=== PATIENT | female | born 1990 | race Caucasian/White ===

== ENCOUNTER 2020-11-12 21:55 | Emergency (ER) | payer SELFPAY ==
[2020-11-12 21:59] VITALS: PULSE 78; RESP 17; TEMP 36.8; O2SAT 98
[2020-11-12 23:00] LABS: Basophils # 0.1 10^3/uL (0.0-0.1); Basophils % 0.5 %; Eosinophils # 0.1 10^3/uL (0.0-0.8); Eosinophils % 0.4 %; Hemoglobin 12.9 g/dL (11.5-15.3); Lymphocytes # 2.6 10^3/uL (0.8-4.8); Lymphocytes % 19.3 %; Mean Corpuscular HGB Conc 32.3 g/dL (30.0-36.0); Mean Corpuscular Volume 80.6 fL (81-99); Mean Platelet Volume 11.1 fL (7.4-10.4); Monocytes # 0.8 10^3/uL (0.2-0.9); Monocytes % 5.9 %; Neutrophils # 10.01 10^3/uL (1.8-7.7); Neutrophils % 73.6 %; Nucleated Red Blood Cells % 0 %; Platelet Count 268 10^3/cmm (130-400); Red Blood Count 4.96 10^6/uL (4.1-5.3); Red Cell Distribution Width 15.3 % (12.1-15.1); White Blood Count 13.6 10^3/uL (4.0-10.0)
[2020-11-12 23:25] LABS: Alanine Aminotransferase 14 U/L (0-33); Albumin Level 4.3 g/dL (3.5-5.2); Alkaline Phosphatase 94 IU/L (35-105); Anion Gap 13.6 (5-19); Aspartate Amino Transferase 24 U/L (0-32); Blood Urea Nitrogen 11 mg/dL (6-20); Calcium 9.9 mg/dL (8.5-10.5); Carbon Dioxide 24 mmol/L (22-29); Chloride 104 mmol/L (98-107); Glomerular Filtration Rate 187.4 mL/min (90-130); Glucose 110 mg/dL (65-115); Lipase 15 U/L (13-60); Osmolality Calculated 286 mOsm/kg (285-295); Potassium 3.6 mmol/L (3.5-5.1); Sodium 138 mmol/L (136-145); Total Bilirubin 0.2 mg/dL (0.15-1.2); Total Protein 7.3 g/dL (6.6-8.7)
[2020-11-12 23:27] LABS: HCG Qualitative Urine. Negative (Negative)
[2020-11-12 23:31] LABS: Specific Gravity, Urine 1.025 (1.005-1.030); Urine Appearance Clear (CLEAR); Urine Color Dark Yellow (Yellow)
[2020-11-12 23:32] LABS: Add Urine Microscopic? YES; Bacteria Urine 1+ /hpf; Bilirubin Urine Neg (Negative); Blood Urine 3+ (Negative); Glucose Urine UA Norm (Normal); Ketones Urine Negative (Negative); Leukocyte Esterase Urine Negative (Negative); Mucus Urine 2+ /hpf; Nitrate Urine Negative (Negative); Protein Urine Neg (Negative); RBC Urine 15-25 /hpf (0-2); Urobilinogen Urine 1 mg/dL (Negative)
[2020-11-12 23:33] LABS: Add Urine Culture? No
== END 2020-11-13 02:01 | disposition left against medical advice (07) ==
LOC: ER 22:08
PROVIDERS: Emergency Provider Emergency Medicine
DX: Z53.21 Procedure and treatment not carried out due to patient leaving prior to being seen by health care provider (principal)
CPT/HCPCS: 80053; 81001; 81025; 83690; 85025; 99281; 99282

== ENCOUNTER → 2021-04-10 14:46 | Outpatient (BNVA) | payer MEDICAID, SELFPAY | PROVIDERS: Visit Provider Nurse Practitioner Women's Health | DX: F19.20 Other psychoactive substance dependence, uncomplicated (principal); Z34.80 Encounter for supervision of other normal pregnancy, unspecified trimester; O09.899 Supervision of other high risk pregnancies, unspecified trimester; F19.21 Other psychoactive substance dependence, in remission; O99.331 Smoking (tobacco) complicating pregnancy, first trimester | CPT/HCPCS: 81000 ==

== ENCOUNTER → 2021-04-29 11:03 | Outpatient (BNVA) | payer MEDICAID, SELFPAY | PROVIDERS: Visit Provider Obstetrics & Gynecology | DX: O09.899 Supervision of other high risk pregnancies, unspecified trimester (principal); O99.331 Smoking (tobacco) complicating pregnancy, first trimester; F19.21 Other psychoactive substance dependence, in remission; O34.40 Maternal care for other abnormalities of cervix, unspecified trimester; Z98.890 Other specified postprocedural states | CPT/HCPCS: 80307; 81000; 85027; 86592; 86762; 86803; 86850; 86900; 87086; 87340; 87806 ==

== ENCOUNTER → 2021-05-14 09:40 | Outpatient (BNVA) | payer MEDICAID, SELFPAY | PROVIDERS: Visit Provider Obstetrics & Gynecology | DX: O09.899 Supervision of other high risk pregnancies, unspecified trimester (principal) | CPT/HCPCS: 81000; 87491; 87591 ==

== ENCOUNTER → 2021-06-13 13:03 | Outpatient (BNVA) | payer MEDICAID, SELFPAY | PROVIDERS: Visit Provider Obstetrics & Gynecology | DX: O09.899 Supervision of other high risk pregnancies, unspecified trimester (principal); F19.21 Other psychoactive substance dependence, in remission; O34.40 Maternal care for other abnormalities of cervix, unspecified trimester; Z98.890 Other specified postprocedural states; O99.331 Smoking (tobacco) complicating pregnancy, first trimester | CPT/HCPCS: 81000 ==

== ENCOUNTER → 2021-07-16 14:33 | Outpatient (BNVA) | payer MEDICAID, SELFPAY | PROVIDERS: Visit Provider Obstetrics & Gynecology | DX: O09.899 Supervision of other high risk pregnancies, unspecified trimester (principal); F19.21 Other psychoactive substance dependence, in remission; B37.3 Candidiasis of vulva and vagina | CPT/HCPCS: 80307; 81000; 87086 ==

== ENCOUNTER → 2021-08-04 12:54 | Outpatient (BNVA) | payer MEDICAID, SELFPAY | PROVIDERS: Visit Provider Obstetrics & Gynecology | DX: O09.899 Supervision of other high risk pregnancies, unspecified trimester (principal); F19.21 Other psychoactive substance dependence, in remission; O34.40 Maternal care for other abnormalities of cervix, unspecified trimester; O99.331 Smoking (tobacco) complicating pregnancy, first trimester; Z98.890 Other specified postprocedural states | CPT/HCPCS: 81000 ==

== ENCOUNTER → 2021-08-20 09:00 | Outpatient (BNVA) | payer MEDICAID, SELFPAY | PROVIDERS: Visit Provider Obstetrics & Gynecology | DX: Z34.90 Encounter for supervision of normal pregnancy, unspecified, unspecified trimester (principal); Z3A.00 Weeks of gestation of pregnancy not specified | CPT/HCPCS: 76817 ==

== ENCOUNTER → 2021-09-02 12:19 | Outpatient (BNVA) | payer MEDICAID, SELFPAY | PROVIDERS: Visit Provider Obstetrics & Gynecology | DX: O09.899 Supervision of other high risk pregnancies, unspecified trimester (principal); F19.21 Other psychoactive substance dependence, in remission; O34.40 Maternal care for other abnormalities of cervix, unspecified trimester; Z98.890 Other specified postprocedural states; O99.331 Smoking (tobacco) complicating pregnancy, first trimester | CPT/HCPCS: 80307; 81000; 82950; 85027 ==

== ENCOUNTER → 2021-09-05 08:44 | Outpatient (BNVA) | payer MEDICAID, SELFPAY | PROVIDERS: Visit Provider Obstetrics & Gynecology | DX: O09.899 Supervision of other high risk pregnancies, unspecified trimester (principal) | CPT/HCPCS: 82951; 82952 ==

== ENCOUNTER → 2021-09-17 10:29 | Outpatient (BNVA) | payer MEDICAID, SELFPAY | PROVIDERS: Visit Provider Obstetrics & Gynecology | DX: O09.899 Supervision of other high risk pregnancies, unspecified trimester (principal) | CPT/HCPCS: 81000 ==

== ENCOUNTER 2021-10-14 13:18 | Inpatient (IN) | payer MEDICAID, SELFPAY ==
[2021-10-14] VITALS (11 sets, daily range): BP systolic 90–213; BP diastolic 45–147; PULSE 80–102; RESP 16–17; TEMP 36.6–37.1; O2SAT 96–97
[2021-10-14 13:45] LABS: Basophils # 0.1 10^3/uL (0.0-0.1); Basophils % 0.3 %; Eosinophils % 0.2 %; Hematocrit 33.9 % (37.0-47.0); Hemoglobin 11.5 g/dL (11.5-15.3); Lymphocytes # 2.7 10^3/uL (0.8-4.8); Lymphocytes % 15.7 %; Mean Corpuscular HGB Conc 33.9 g/dL (30.0-36.0); Mean Corpuscular Hemoglobin 27.3 pg (28.0-34.0); Mean Corpuscular Volume 80.3 fl (81-99); Mean Platelet Volume 10.8 fL (7.4-10.4); Monocytes # 1.1 10^3/uL (0.2-0.9); Monocytes % 6.6 %; Neutrophils # 13.17 10^3/uL (1.8-7.7); Neutrophils % 76.6 %; Nucleated Red Blood Cells % 0 %; Platelet Count 257 10^3/cmm (130-400); Red Blood Count 4.22 10^6/uL (4.1-5.3); White Blood Count 17.2 10^3/uL (4.0-10.0)
--- NOTE | 2021-10-14 15:27 | P.PCNOB_ITS ---
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 Lim is a 31-year-old 5 P3013 at 34 weeks and 3 days who presented to labor and delivery with reports of contractions. She states that contractions started about 330 this morning handwork strong but irregular however she thought that they would go away and she was just monitoring her contractions. When they persisted and got stronger and more frequent she drove herself over to labor and delivery. She rates Labor and Delivery at 1 PM at which point she was noted to be in active labor at 7 cm 90% and -1 station- cephalic's. tracing was category 1 and she is rudy every 1 to 3 minutes and was very uncomfortable. She was examined 20 minutes later and was noted to be 9 cm with a bulging bag at which time I was called and reached in about 5 minutes. Orders have been placed to start antibiotics and steroids but none of this had been done by the time patient was fully dilated at 1:44 PM as she was getting admitted into the system. Decision was made to forego this as it would not make a difference to give these medications a couple of minutes before delivery. Artificial rupture of membranes was performed at 1:50 PM as patient was very uncomfortable with the urge to push. Investor Relations Manager Dr. Woods was present. Clear fluid was noted. Patient was placed in lithotomy position ready to deliver DELIVERY NOTE: She was set up in lithotomy position and was pushing effectively. She was noted to be +3 station and continued pushing well. The head delivered in DEVONTE position, no nuchal cord was present. The shoulders and rest of the body followed with her next push. The baby's mouth and nose were suctioned and baby was handed to the waiting mastic worker Dr. Woods. The placenta delivered spontaneously intact with membranes and was sent to pathology after cultures were obtained. The fundus was noted to be firm and well contracted. The vagina and cervix were inspected and no cervical or sulcal lacerations were noted. The perineum was noted to be intact Baby boy, Dave born at 1:53 PM on 10/14/2021 with 8/9, weighing 5 pounds, 2217 g, 18 inches long. Placenta was delivered spontaneously intact with membranes at 1:57 PM. Cotyledons were intact , centrally inserted umbilical cord with 3 vessels noted. Placental cultures were obtained and placenta was sent to pathology Estimated blood loss 200 mL. Complications-no maternal complications and mother was left to recover in a stable condition. Baby was grunting and was taken by mastic worker Dr. Woods to the nursery for evaluation. This documentation was created by [employer] certified legal investigator software (known for inherent certified legal investigator error). Every effort was made to assure accuracy of certified legal investigator. Any obvious errors or omissions should be clarified with the author of the document. History History History 5 Term 3 Miscarriages/Ectopic 1 1 Living Children 4 Other History: 5 para 3013 x 3 SAB x 1 1---> 2009, full-term vaginal delivery of a baby boy (Ajith) weighing 7 lbs. 3 oz. in [place]. Denies any or complications. 2-----> 2012, full-term vaginal delivery of a baby boy(Bin) weighing [address] Marcum at [facility]. No or complications. 3-----> 08/04/2016, incomplete in 1st trimester at 10 weeks gestation, d&c preformed by Dr. Slim Lyn. 4-----> 07/12/2017, male, (John), 6 lbs, 3 oz, vaginal delivery at 37 weeks [address] Roach at [facility] in [place], [place]. 5-----> October 14, 2021, male([place]), 5 pounds 0 ounces at 34 weeks and 3 days-active labor-presented at 7 cm and delivered in [address]. [address] Lyn at [facility]. Intact perineum. Baby was transferred to [facility] for respiratory support given gestational age. Coding Level of Care Code Acute Banquet Chef for Chg Fwkaryn
--- NOTE | 2021-10-14 15:30 | PM.OPHPUD ---
Labor & Delivery H&P Update Date of Procedure: October 14, 2021 Date H&P Performed: 09/17/21 H&P update information: I have reviewed H&P completed within last 30 days, I have examined patient prior to procedure, Changes to prior documentation as noted here and H&P is in [facility] EMR on date indicated Changes to previous documentation: Patient in active labor with cervix 7 cm 90% and -1 station Admission Diagnosis:
[2021-10-14 15:41] LABS: Amphetamines Screen Urine Negative (Negative); Barbiturates Screen Urine Negative (Negative); Benzodiazepines Screen Urine Negative (Negative); Cocaine Screen Urine Negative (Negative); Opiate Screen Urine Negative (Negative); PCP Screen Urine Negative (Negative); THC Screen Urine Negative (Negative)
[2021-10-14] MEDS: ibuprofen 800 mg tablet PO (22:31)
[2021-10-14] MEDS: docusate sodium 100 mg Capsule PO (22:32)
[2021-10-15 03:37] VITALS: BP 101/48; PULSE 83; RESP 14; O2SAT 98
[2021-10-15 03:40] LABS: Hematocrit 32.9 % (37.0-47.0); Hemoglobin 10.6 g/dL (11.5-15.3); Mean Corpuscular HGB Conc 32.2 g/dL (30.0-36.0); Mean Corpuscular Hemoglobin 26.7 pg (28.0-34.0); Mean Corpuscular Volume 82.9 fl (81-99); Mean Platelet Volume 10.6 fL (7.4-10.4); Platelet Count 237 10^3/cmm (130-400); Red Blood Count 3.97 10^6/uL (4.1-5.3); Red Cell Distribution Width 13.9 % (12.1-15.1); White Blood Count 12.9 10^3/uL (4.0-10.0)
--- NOTE | 2021-10-15 07:23 | P.DS_ITS ---
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 Lim is a 31-year-old 5 P3013 at 34 weeks and 3 days who presented to labor and delivery with reports of contractions. She states that contractions started about 330 this morning handwork strong but irregular however she thought that they would go away and she was just monitoring her contractions. When they persisted and got stronger and more frequent she drove herself over to labor and delivery. She rates Labor and Delivery at 1 PM at which point she was noted to be in active labor at 7 cm 90% and -1 station- cephalic's. tracing was category 1 and she is rudy every 1 to 3 minutes and was very uncomfortable. She was examined 20 minutes later and was noted to be 9 cm with a bulging bag at which time I was called and reached in about 5 minutes. Orders have been placed to start antibiotics and steroids but none of this had been done by the time patient was fully dilated at 1:44 PM as she was getting admitted into the system. Decision was made to forego this as it would not make a difference to give these medications a couple of minutes before delivery. Artificial rupture of membranes was performed at 1:50 PM as patient was very uncomfortable with the urge to push. Life Insurance Specialist Dr. Woods was present. Clear fluid was noted. Patient was placed in lithotomy position ready to deliver DELIVERY NOTE: She was set up in lithotomy position and was pushing effectively. She was noted to be +3 station and continued pushing well. The head delivered in DEVONTE position, no nuchal cord was present. The shoulders and rest of the body followed with her next push. The baby's mouth and nose were suctioned and baby was handed to the waiting personal insurance advisor Dr. Woods. The placenta delivered spontaneously intact with membranes and was sent to pathology after cultures were obtained. The fundus was noted to be firm and well contracted. The vagina and cervix were inspected and no cervical or sulcal lacerations were noted. The perineum was noted to be intact Baby boy, Dave born at 1:53 PM on 10/14/2021 with 8/9, weighing 5 pounds, 2217 g, 18 inches long. Placenta was delivered spontaneously intact with membranes at 1:57 PM. Cotyledons were intact , centrally inserted umbilical cord with 3 vessels noted. Placental cultures were obtained and placenta was sent to pathology Estimated blood loss 200 mL. Complications-no maternal complications and mother was left to recover in a stable condition. Baby was grunting and was taken by personal insurance advisor Dr. Woods to the nursery for evaluation. HOSPITAL COURSE: She underwent an uncomplicated vaginal delivery on October 14, 2021 at 34 weeks. She did well on day 0 and was ambulating well, tolerating regular diet, voiding freely, passing flatus. She was pumping without any difficulty. Her son had been transferred to [place] for prematurity and respiratory difficulty on day of life 0. Pain was well-controlled with by mouth pain medication. She denied nausea, vomiting, fever, chills, shortness of breath, leg pain. She had moderate vaginal bleeding. On day # 1 she continued to do well with stable vital signs and stable hemoglobin at 10.6. She was discharged home on day 1 in a stable condition after about 18 hours as she desired early discharge to be with her baby in [place]. Warning signs for endometritis, mastitis, DVT/PE were reviewed with her. Post delivery activity restrictions were also reviewed with her at all her questions were answered to her satisfaction. She plans on using the Nexplanon for contraception and plan is to place this between 4 to 5 weeks and these appointments are provided to patient prior to discharge EXAM AT DISCHARGE: Gen.: No acute distress Heart: S1-S2 heard, regular rate and rhythm Lungs: Clear to auscultation bilaterally Abdomen: Soft, fundus firm below umbilicus Legs: No calf tenderness, trace bilateral pitting pedal edema. CONDITION AT DISCHARGE: Stable This documentation was created by [employer] floors buffer software (known for inherent floors buffer error). Every effort was made to assure accuracy of floors buffer. Any obvious errors or omissions should be clarified with the author of the document. Reason for Visit Reason for Visit: Abdominal pain Information Peripartum Data: Infant Delivery Method: Vaginal History History History 5 Term 3 Miscarriages/Ectopic 1 1 Living Children 4 Other History: 5 para 3013 x 3 SAB x 1 1---> 2009, full-term vaginal delivery of a baby boy (Ajith) weighing 7 lbs. 3 oz. in [place]. Denies any or complications. 2-----> 2012, full-term vaginal delivery of a baby boy(Bin) weighing [address] Marcum at [facility]. No or complications. 3-----> 08/04/2016, incomplete in 1st trimester at 10 weeks gestation, d&c preformed by Dr. Slim Lyn. 4-----> 07/12/2017, male, (John), 6 lbs, 3 oz, vaginal delivery at 37 weeks [address] Roach at [facility] in [place], [place]. 5-----> October 14, 2021, male([place]), 5 pounds 0 ounces at 34 weeks and 3 days-active labor-presented at 7 cm and delivered in [address]. [address] Lyn at [facility]. Intact perineum. Baby was transferred to [facility] for respiratory support given gestational age. Discharge Data Data Completed and Pending: Pending at discharge Category Date Time Status Chlamydia Trachom atis KELSI Routine Lab 10/14/21 14:30 Received Neisseria Gonorrh oeae EKLSI Routine Lab 10/14/21 14:30 Received Tissue Culture an d Gram Stain Stat Lab 10/14/21 14:06 Received Tissue Culture an d Gram Stain Stat Lab 10/14/21 14:06 Received Urine Culture Sta t Lab 10/14/21 14:30 Received Pathology: Surgic al [PTH] Routine Pth 10/14/21 14:28 Ordered Labs from last 24 hours 10/15/21 10/14/21 10/14/21 03:33 14:52 13:20 WBC 12.9 H 17.2 H RBC 3.97 L 4.22 Hgb 10.6 L 11.5 Hct 32.9 L 33.9 L MCV 82.9 80.3 L MCH 26.7 L 27.3 L MCHC 32.2 D 33.9 RDW 13.9 14.0 Plt Count 237 257 MPV 10.6 H 10.8 H Neut % (Auto) 76.6 Lymph % (Auto) 15.7 Elliott % (Auto) 6.6 Eos % (Auto) 0.2 Baso % (Auto) 0.3 Neut # (Auto) 13.17 H Lymph # (Auto) 2.7 Elliott # (Auto) 1.1 H Eos # (Auto) 0.0 Baso # (Auto) 0.1 Nucleated RBC % (a uto) 0 Nucleated RBCs # 0.0 Urine Opiates Scre en Negative Ur Barbiturates Sc reen Negative Ur Phencyclidine S crn Negative Ur Amphetamines Sc reen Negative U Benzodiazepines Scrn Negative Urine Cocaine Scre en Negative U Marijuana (THC) Screen Negative Vitals: Last Vital Signs Temp 97.9 F 10/14/21 17:30 Pulse 83 10/15/21 03:37 Resp 14 10/15/21 03:37 BP 101/48 10/15/21 03:37 Pulse Ox 98 10/15/21 03:37 Discharge Plan Discharge Patient Disposition: Home Condition: Stable Prescriptions: New docusate sodium 100 mg Capsule 100 mg PO BID PRN (Reason: constipation) Qty: 30 RF: 0 ibuprofen 800 mg tablet 800 mg PO Q8H Qty: 30 RF: 0 Continued Gummy 400 mcg-35 mg -25 mg-5 mg tablet,chewable 2 tab PO DAILY RF: 0 buprenorphine-naloxone 8-2 mg tablet, sublingual See Rx Instructions sublingual BID RF: 0 (DME) breast pump [Pump In Style Advanced] Device See Rx Instructions .MEDSUPPLY Qty: 1 RF: 0 Discontinued ferrous sulfate 325 mg (65 mg iron) tablet,delayed release (DR/EC) 325 mg PO BID Qty: 90 RF: 2 Discharge Orders: Discharge Order (Routine); Ordered 10/15/21 Ordered By: Slim Riddle Referrals: Slim Riddle MD [Physician] - Discharge Diet: Regular Discharge Activity: Limit activity as instructed Patient Instructions: Opioid Safety Activity Restrictions/Additional Instructions: Pelvic rest for 6 weeks, no heavy lifting for 6 weeks, 5. Nexplanon insertion visit in 6-week visit with Dr. Lyn Discharge Attestations CUT OUT STITCHER Time Spent in Discharge Care*: greater than 30 min Coding Level of Care Code Acute Presentation Team Member for Ciera Molina
[2021-10-15 09:20] VITALS: BP 109/65; PULSE 92; RESP 18; TEMP 36.4; O2SAT 95
== END 2021-10-15 09:35 | disposition home or self-care (01) | DRG 806 ==
LOC: OPOB 13:19 → OBGYN 13:19
PROVIDERS: Admitting Provider Obstetrics & Gynecology; Visit Provider Obstetrics & Gynecology
DX: O60.14X0 Preterm labor third trimester with preterm delivery third trimester, not applicable or unspecified (principal); O99.324 Drug use complicating childbirth; Z37.0 Single live birth; F11.21 Opioid dependence, in remission; Z3A.34 34 weeks gestation of pregnancy; O99.02 Anemia complicating childbirth; D64.9 Anemia, unspecified; O99.334 Smoking (tobacco) complicating childbirth; F17.210 Nicotine dependence, cigarettes, uncomplicated
CPT/HCPCS: 36415; 59025; 59409; 80306; 85025; 85027; 87070; 87077; 87086; 87176; 87186; 87205; 87491; 87591; 88307; 99211

== ENCOUNTER 2021-11-24 05:11 | Emergency (ER) | payer MEDICAID, SELFPAY ==
[2021-11-24 05:12] VITALS: BP 109/75; PULSE 78; RESP 18; TEMP 36.4; O2SAT 98; BMI 48.6
--- NOTE | 2021-11-24 05:18 | ED_ITS ---
Documented by User: Caren Caballero MD 11/24/21 05:20 HPI - Nausea/Vomiting/Diarrhea General: Chief complaint: Nausea/Vomiting/Diarrhea Stated complaint: N/V/D Time Seen by Provider: 11/24/21 05:14 Source: patient Mode of arrival: ambulatory Limitations: no limitations History of Present Illness: HPI Narrative: 31-year-old female is here by EMS with nausea vomiting diarrhea states it started all of a sudden at 8 PM and she felt severely ill. She states she ate some burritos earlier and thought she may have food poisoning states she has had multiple episodes of vomiting and diarrhea. She was having abdominal cramping as well denies any fevers. Denies any sick contacts. Patient was given Phenergan in route states that her symptoms have improved greatly she no longer has any pain and has not had any more vomiting she had recently given last month vaginally no discharge or any problems with her . She has not had a menstruation since her . 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 Quit in June 2020 and is on medication for withdrawal monitored by [facility]-Dr. Hernandez No pertinent past medical history Denies diabetes, asthma, hypertension, seizures, DVT/PE PCP: None Surgical History H/O dilation and curettage (~2015) 2016--performed by Dr. Lyn for incomplete miscarriage at 10 weeks at [facility] [place] H/O LEEP (08/21/15) 08/2015----LEEP performed by Dr. Day for abnormal cells on the cervix. LEEP performed in office-squamocolumnar junction was identified and removed. She had a lot of bleeding which was unable to be controlled in the office and so was taken to outpatient surgery center were bleeding was stopped with repeated cautery and sutures. Family History Mother Diabetes Thyroid disease Heart disease Grandmother Heart disease maternal Sister Diabetes Father Colon cancer Diagnosed in his 60s Denies family history of Ovarian cancer Hyperlipidemia Breast cancer Hypertension Uterine cancer Stroke Physical Exam Const: COMMON NORMALS: no acute distress, patient oriented x3 and healthy appearing HENMT: COMMON NORMALS: normocephalic and atraumatic HEAD & SCALP: normocephalic and atraumatic Eye: COMMON NORMALS: Equal, round and reactive pupils present and EOMs intact bilaterally PUPIL: Yes Equal, round and reactive pupils present Neck/C-Spine: COMMON NORMALS: full ROM and supple Chest: COMMONS NORMALS: normal inspection of the chest and normal palpation of entire chest wall Resp: COMMON NORMALS: normal respiratory effort, No retractions, No use of accessory muscles and clear to auscultation bilaterally AUSCULTATION: clear to auscultation bilaterally Cardio: COMMON NORMALS: regular rate, regular rhythm and No murmurs present (Cardio) RATE: regular rate RHYTHM: regular rhythm GI: COMMON NORMALS: Normal to inspection, nondistended, normoactive bowel sounds present, Soft to palpation, non-tender and no masses PALPATION: Yes Soft to palpation Extremity: COMMON NORMALS: normal to inspection and full ROM Neuro: COMMON NORMALS: patient oriented x3, moves all extremities and no focal motor deficits Psych: COMMON NORMALS: mental status grossly normal, Normal thought process present and cooperative THOUGHT PROCESS: Normal thought process present Skin: COMMON NORMALS: no rashes or lesions noted and no wounds GENERAL SKIN EXAM: no rashes or lesions noted Course Vital Signs: Vital signs: Vital Signs Temperature 97.5 F L 11/24/21 05:12 Pulse Rate 78 11/24/21 05:12 Respiratory Rate 18 11/24/21 05:12 Blood Pressure 109/75 11/24/21 05:12 Pulse Oximetry 98 11/24/21 05:12 MDM - Nausea/Vomiting/Diarrhea Lab Data: Labs: Lab Results 11/24/21 11/24/21 11/24/21 05:35 05:35 05:40 WBC Cancelled Corrected WBC Cancelled RBC Cancelled Hgb Cancelled Hct Cancelled MCV Cancelled MCH Cancelled MCHC Cancelled RDW Cancelled Plt Count Cancelled MPV Cancelled Gran % Cancelled Neut % (Auto) Cancelled Lymph % (Auto) Cancelled [place] % (Auto) Cancelled Eos % (Auto) Cancelled Baso % (Auto) Cancelled Neut # (Auto) Cancelled Lymph # (Auto) Cancelled [place] # (Auto) Cancelled Eos # (Auto) Cancelled Baso # (Auto) Cancelled Absolute Gran (aut o) Cancelled Nucleated RBC % (a uto) Cancelled Nucleated RBCs # Cancelled Sodium Cancelled Potassium Cancelled Chloride Cancelled Carbon Dioxide Cancelled Anion Gap Cancelled BUN Cancelled Creatinine Cancelled GFR Calculation Cancelled Glucose Cancelled Calculated Osmolal ity Cancelled Calcium Cancelled Total Bilirubin Cancelled AST Cancelled ALT Cancelled Alkaline Phosphata se Cancelled Total Protein Cancelled Albumin Cancelled Globulin Cancelled Lipase Cancelled Urine Color Yellow (Yellow) Urine Appearance Sl hazy (CLEAR) Urine pH 5 (5-7) Ur Specific Gravit y 1.025 (1.005-1.030) Urine Protein 1+ H (Negative) Urine Glucose (UA) Norm (Normal) Urine Ketones 1+ H (Negative) Urine Blood 2+ H (Negative) Urine Nitrate Negative (Negative) Urine Bilirubin 1+ H (Negative) Urine Urobilinogen 4 mg/dL H mg/dL (Negative) Ur Leukocyte Darcy ase Trace H (Negative) Urine RBC 5-10 /hpf H /hpf (0-2) Urine WBC 0-4 /hpf H /hpf (0-5) Ur Squamous Epith Cells 25-40 /hpf H /hpf (0-5) Amorphous Sediment Not Reportable Urine Bacteria 3+ /hpf H /hpf (NONE) Urine Mucus 4+ /hpf /hpf 11/24/21 11/24/21 06:13 06:13 WBC 16.6 10^3/uL H 10 ^3/uL (4.0-10.0) Corrected WBC RBC 5.61 10^6/uL H 10 ^6/uL (4.1-5.3) Hgb 14.6 g/dL g/dL (11.5-15.3) Hct 46.4 % % (37.0-47.0) MCV 82.7 fl fl (81-99) MCH 26.0 pg L pg (28.0-34.0) MCHC 31.5 g/dL g/dL (30.0-36.0) RDW 14.0 % % (12.1-15.1) Plt Count 183 10^3/cmm 10^3 /cmm (130-400) MPV 11.2 fL H fL (7.4-10.4) Gran % Neut % (Auto) 86.6 % % Lymph % (Auto) 6.7 % % [place] % (Auto) 5.3 % % Eos % (Auto) 0.7 % % Baso % (Auto) 0.3 % % Neut # (Auto) 14.37 10^3/uL H 1 0^3/uL (1.8-7.7) Lymph # (Auto) 1.1 10^3/uL 10^3/ uL (0.8-4.8) [place] # (Auto) 0.9 10^3/uL 10^3/ uL (0.2-0.9) Eos # (Auto) 0.1 10^3/uL 10^3/ uL (0.0-0.8) Baso # (Auto) 0.1 10^3/uL 10^3/ uL (0.0-0.1) Absolute Gran (aut o) Nucleated RBC % (a uto) 0 % % Nucleated RBCs # 0.0 /100WBC /100W BC Sodium 142 mmol/L mmol/L (136-145) Potassium 4.1 mmol/L mmol/L (3.5-5.1) Chloride 105 mmol/L mmol/L (98-107) Carbon Dioxide 24 mmol/L mmol/L (22-29) Anion Gap 17.1 (5-19) BUN 11 mg/dL mg/dL (6-20) Creatinine 0.6 mg/dL mg/dL (0.5-0.9) GFR Calculation 116.6 mL/min mL/m in (90-130) Glucose 98 mg/dL mg/dL (65-115) Calculated Osmolal ity 293 mOsm/kg mOsm/ kg (285-295) Calcium 9.1 mg/dL mg/dL (8.5-10.5) Total Bilirubin 0.3 mg/dL mg/dL (0.15-1.2) AST 18 U/L U/L (0-32) ALT 26 U/L U/L (0-33) Alkaline Phosphata se 87 IU/L IU/L (35-105) Total Protein 6.9 g/dL g/dL (6.6-8.7) Albumin 4.5 g/dL g/dL (3.5-5.2) Globulin 2.4 g/dL g/dL (1.3-4.6) Lipase 21 U/L U/L (13-60) Urine Color Urine Appearance Urine pH Ur Specific Gravit y Urine Protein Urine Glucose (UA) Urine Ketones Urine Blood Urine Nitrate Urine Bilirubin Urine Urobilinogen Ur Leukocyte Darcy ase Urine RBC Urine WBC Ur Squamous Epith Cells Amorphous Sediment Urine Bacteria Urine Mucus Discharge Plan Discharge Patient Disposition: Home Clinical Impression: Gastroenteritis Condition: Stable Prescriptions: New promethazine 25 mg tablet 25 mg PO Q6H PRN (Reason: nausea and vomiting) Qty: 20 RF: 0 No Action Gummy 400 mcg-35 mg -25 mg-5 mg tablet,chewable 2 tab PO DAILY RF: 0 buprenorphine-naloxone 8-2 mg tablet, sublingual See Rx Instructions sublingual BID RF: 0 (DME) breast pump [Pump In Style Advanced] Device See Rx Instructions .MEDSUPPLY Qty: 1 RF: 0 ibuprofen 800 mg tablet 800 mg PO Q8H Qty: 30 RF: 0 docusate sodium 100 mg Capsule 100 mg PO BID PRN (Reason: constipation) Qty: 30 RF: 0 Discharge Orders: Discharge ED (Routine); Ordered 11/24/21 Ordered By: Jalen Diana Discharge Diet: Clear Liquid Discharge Activity: Resume usual activity Patient Instructions: Clear Liquid Diet (ED), Opioid Safety Activity Restrictions/Additional Instructions: Clear liquid diet for 24 to 48 hours and advance as tolerated. For any worsening or change symptoms return to the emergency room or check in with your primary care doctor. Sign Out Sign Out Data: Patient Sign Out occurred on 11/24/21 at 06:18. Patient's care was discussed, and care was transferred from to Jalen Diana DO. 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 Quit in June 2020 and is on medication for withdrawal monitored by [facility]-Dr. Hernandez No pertinent past medical history Denies diabetes, asthma, hypertension, seizures, DVT/PE PCP: None Surgical History H/O dilation and curettage (~2015) 2015--performed by Dr. Lyn for incomplete miscarriage at 10 weeks at [facility] [place] H/O LEEP (08/21/15) 08/2015----LEEP performed by Dr. Day for abnormal cells on the cervix. LEEP performed in office-squamocolumnar junction was identified and removed. She had a lot of bleeding which was unable to be controlled in the office and so was taken to outpatient surgery center were bleeding was stopped with repeated cautery and sutures. Family History Mother Diabetes Thyroid disease Heart disease Grandmother Heart disease maternal Sister Diabetes Father Colon cancer Diagnosed in his 60s Denies family history of Ovarian cancer Hyperlipidemia Breast cancer Hypertension Uterine cancer Stroke Course Vital Signs: Vital signs: Vital Signs Temperature 97.5 F L 11/24/21 05:12 Pulse Rate 78 11/24/21 05:12 Respiratory Rate 18 11/24/21 05:12 Blood Pressure 109/75 11/24/21 05:12 Pulse Oximetry 98 11/24/21 05:12 MDM - Nausea/Vomiting/Diarrhea MDM Narrative: Medical decision making narrative: Care assumed at change of shift from Dr. Caballero. Patient is feeling much better. She is approximately 3 weeks . She has not previously had any symptoms like this. T bili and liver enzymes are normal repeat exam of her abdomen negative Dc sign no sign of occult cholelithiasis. Clear liquid diet for 48 hours and advance as tolerated promethazine to use as needed recheck with primary care or in the emergency room if has any worsening of symptoms. Lab Data: Labs: Lab Results 11/24/21 11/24/21 11/24/21 05:35 05:35 05:40 WBC Cancelled Corrected WBC Cancelled RBC Cancelled Hgb Cancelled Hct Cancelled MCV Cancelled MCH Cancelled MCHC Cancelled RDW Cancelled Plt Count Cancelled MPV Cancelled Gran % Cancelled Neut % (Auto) Cancelled Lymph % (Auto) Cancelled [place] % (Auto) Cancelled Eos % (Auto) Cancelled Baso % (Auto) Cancelled Neut # (Auto) Cancelled Lymph # (Auto) Cancelled [place] # (Auto) Cancelled Eos # (Auto) Cancelled Baso # (Auto) Cancelled Absolute Gran (aut o) Cancelled Nucleated RBC % (a uto) Cancelled Nucleated RBCs # Cancelled Sodium Cancelled Potassium Cancelled Chloride Cancelled Carbon Dioxide Cancelled Anion Gap Cancelled BUN Cancelled Creatinine Cancelled GFR Calculation Cancelled Glucose Cancelled Calculated Osmolal ity Cancelled Calcium Cancelled Total Bilirubin Cancelled AST Cancelled ALT Cancelled Alkaline Phosphata se Cancelled Total Protein Cancelled Albumin Cancelled Globulin Cancelled Lipase Cancelled Urine Color Yellow (Yellow) Urine Appearance Sl hazy (CLEAR) Urine pH 5 (5-7) Ur Specific Gravit y 1.025 (1.005-1.030) Urine Protein 1+ H (Negative) Urine Glucose (UA) Norm (Normal) Urine Ketones 1+ H (Negative) Urine Blood 2+ H (Negative) Urine Nitrate Negative (Negative) Urine Bilirubin 1+ H (Negative) Urine Urobilinogen 4 mg/dL H mg/dL (Negative) Ur Leukocyte Darcy ase Trace H (Negative) Urine RBC 5-10 /hpf H /hpf (0-2) Urine WBC 0-4 /hpf H /hpf (0-5) Ur Squamous Epith Cells 25-40 /hpf H /hpf (0-5) Amorphous Sediment Not Reportable Urine Bacteria 3+ /hpf H /hpf (NONE) Urine Mucus 4+ /hpf /hpf 11/24/21 11/24/21 06:13 06:13 WBC 16.6 10^3/uL H 10 ^3/uL (4.0-10.0) Corrected WBC RBC 5.61 10^6/uL H 10 ^6/uL (4.1-5.3) Hgb 14.6 g/dL g/dL (11.5-15.3) Hct 46.4 % % (37.0-47.0) MCV 82.7 fl fl (81-99) MCH 26.0 pg L pg (28.0-34.0) MCHC 31.5 g/dL g/dL (30.0-36.0) RDW 14.0 % % (12.1-15.1) Plt Count 183 10^3/cmm 10^3 /cmm (130-400) MPV 11.2 fL H fL (7.4-10.4) Gran % Neut % (Auto) 86.6 % % Lymph % (Auto) 6.7 % % [place] % (Auto) 5.3 % % Eos % (Auto) 0.7 % % Baso % (Auto) 0.3 % % Neut # (Auto) 14.37 10^3/uL H 1 0^3/uL (1.8-7.7) Lymph # (Auto) 1.1 10^3/uL 10^3/ uL (0.8-4.8) [place] # (Auto) 0.9 10^3/uL 10^3/ uL (0.2-0.9) Eos # (Auto) 0.1 10^3/uL 10^3/ uL (0.0-0.8) Baso # (Auto) 0.1 10^3/uL 10^3/ uL (0.0-0.1) Absolute Gran (aut o) Nucleated RBC % (a uto) 0 % % Nucleated RBCs # 0.0 /100WBC /100W BC Sodium 142 mmol/L mmol/L (136-145) Potassium 4.1 mmol/L mmol/L (3.5-5.1) Chloride 105 mmol/L mmol/L (98-107) Carbon Dioxide 24 mmol/L mmol/L (22-29) Anion Gap 17.1 (5-19) BUN 11 mg/dL mg/dL (6-20) Creatinine 0.6 mg/dL mg/dL (0.5-0.9) GFR Calculation 116.6 mL/min mL/m in (90-130) Glucose 98 mg/dL mg/dL (65-115) Calculated Osmolal ity 293 mOsm/kg mOsm/ kg (285-295) Calcium 9.1 mg/dL mg/dL (8.5-10.5) Total Bilirubin 0.3 mg/dL mg/dL (0.15-1.2) AST 18 U/L U/L (0-32) ALT 26 U/L U/L (0-33) Alkaline Phosphata se 87 IU/L IU/L (35-105) Total Protein 6.9 g/dL g/dL (6.6-8.7) Albumin 4.5 g/dL g/dL (3.5-5.2) Globulin 2.4 g/dL g/dL (1.3-4.6) Lipase 21 U/L U/L (13-60) Urine Color Urine Appearance Urine pH Ur Specific Gravit y Urine Protein Urine Glucose (UA) Urine Ketones Urine Blood Urine Nitrate Urine Bilirubin Urine Urobilinogen Ur Leukocyte Darcy ase Urine RBC Urine WBC Ur Squamous Epith Cells Amorphous Sediment Urine Bacteria Urine Mucus Discharge Plan Discharge Patient Disposition: Home Clinical Impression: Gastroenteritis Condition: Stable Prescriptions: New promethazine 25 mg tablet 25 mg PO Q6H PRN (Reason: nausea and vomiting) Qty: 20 RF: 0 No Action Gummy 400 mcg-35 mg -25 mg-5 mg tablet,chewable 2 tab PO DAILY RF: 0 buprenorphine-naloxone 8-2 mg tablet, sublingual See Rx Instructions sublingual BID RF: 0 (DME) breast pump [Pump In Style Advanced] Device See Rx Instructions .MEDSUPPLY Qty: 1 RF: 0 ibuprofen 800 mg tablet 800 mg PO Q8H Qty: 30 RF: 0 docusate sodium 100 mg Capsule 100 mg PO BID PRN (Reason: constipation) Qty: 30 RF: 0 Discharge Orders: Discharge ED (Routine); Ordered 11/24/21 Ordered By: Jalen Diana Discharge Diet: Clear Liquid Discharge Activity: Resume usual activity Patient Instructions: Clear Liquid Diet (ED), Opioid Safety Activity Restrictions/Additional Instructions: Clear liquid diet for 24 to 48 hours and advance as tolerated. For any worsening or change symptoms return to the emergency room or check in with your primary care doctor. Sign Out Sign Out Data: Patient Sign Out occurred on 11/24/21 at 06:18. Patient's care was discussed, and care was transferred from to Jalen Diana DO. Coding Level of Care Code ED Enrollment Management Vice President for Chg Fwd Exam Comprehensive
[2021-11-24] MEDS: sodium chloride 0.9% 1,000 ML 999 ML IV (05:30)
[2021-11-24 06:22] LABS: Basophils # 0.1 10^3/uL (0.0-0.1); Basophils % 0.3 %; Eosinophils # 0.1 10^3/uL (0.0-0.8); Eosinophils % 0.7 %; Hematocrit 46.4 % (37.0-47.0); Hemoglobin 14.6 g/dL (11.5-15.3); Lymphocytes # 1.1 10^3/uL (0.8-4.8); Lymphocytes % 6.7 %; Mean Corpuscular HGB Conc 31.5 g/dL (30.0-36.0); Mean Corpuscular Volume 82.7 fl (81-99); Mean Platelet Volume 11.2 fL (7.4-10.4); Monocytes # 0.9 10^3/uL (0.2-0.9); Monocytes % 5.3 %; Neutrophils # 14.37 10^3/uL (1.8-7.7); Neutrophils % 86.6 %; Nucleated Red Blood Cells % 0 %; Platelet Count 183 10^3/cmm (130-400); Red Blood Count 5.61 10^6/uL (4.1-5.3); White Blood Count 16.6 10^3/uL (4.0-10.0)
[2021-11-24 06:23] LABS: Add Urine Microscopic? YES; Bilirubin Urine 1+ (Negative); Blood Urine 2+ (Negative); Glucose Urine UA Norm (Normal); Ketones Urine 1+ (Negative); Leukocyte Esterase Urine Trace (Negative); Nitrate Urine Negative (Negative); Protein Urine 1+ (Negative); Specific Gravity, Urine 1.025 (1.005-1.030); Urine Appearance SL Hazy (CLEAR); Urine Color Yellow (Yellow); Urobilinogen Urine 4 mg/dL (Negative); pH Urine 5 (5-7)
[2021-11-24 06:25] LABS: Add Urine Culture? No; Bacteria Urine 3+ /hpf; Mucus Urine 4+ /hpf; Squamous Epithelial Cell Urine 25-40 /hpf (0-5); WBC Urine 0-4 /hpf (0-5)
[2021-11-24 06:38] LABS: Alanine Aminotransferase 26 U/L (0-33); Albumin Level 4.5 g/dL (3.5-5.2); Alkaline Phosphatase 87 IU/L (35-105); Anion Gap 17.1 (5-19); Aspartate Amino Transferase 18 U/L (0-32); Blood Urea Nitrogen 11 mg/dL (6-20); Calcium 9.1 mg/dL (8.5-10.5); Carbon Dioxide 24 mmol/L (22-29); Chloride 105 mmol/L (98-107); Globulin 2.4 g/dL (1.3-4.6); Glomerular Filtration Rate 116.6 mL/min (90-130); Glucose 98 mg/dL (65-115); Lipase 21 U/L (13-60); Osmolality Calculated 293 mOsm/kg (285-295); Potassium 4.1 mmol/L (3.5-5.1); Sodium 142 mmol/L (136-145); Total Bilirubin 0.3 mg/dL (0.15-1.2); Total Protein 6.9 g/dL (6.6-8.7)
[2021-11-24 07:16] VITALS: BP 114/64; PULSE 86; RESP 18; O2SAT 98
== END 2021-11-24 07:15 | disposition home or self-care (01) ==
PROVIDERS: Emergency Medicine; Emergency Provider Family Medicine
DX: K52.9 Noninfective gastroenteritis and colitis, unspecified (principal)
CPT/HCPCS: 36415; 80053; 81001; 83690; 85025; 96360; 99283; J7030

== ENCOUNTER → 2021-11-25 15:50 | Outpatient (BNVA) | payer MEDICAID, SELFPAY | PROVIDERS: Visit Provider Obstetrics & Gynecology | DX: Z30.9 Encounter for contraceptive management, unspecified (principal) | CPT/HCPCS: 81025 ==

== ENCOUNTER → 2021-12-02 11:48 | Outpatient (BNVA) | payer MEDICAID, SELFPAY | PROVIDERS: Visit Provider Obstetrics & Gynecology | DX: Z12.4 Encounter for screening for malignant neoplasm of cervix (principal) | CPT/HCPCS: 87624 ==

== ENCOUNTER 2022-12-29 01:52 | Inpatient (IN) | payer MEDICAID, SELFPAY ==
[2022-12-29] VITALS (22 sets, daily range): BP systolic 79–131; BP diastolic 33–75; PULSE 64–88; RESP 16–20; TEMP 36.1–37.6; O2SAT 93–100; BMI 29.2
--- NOTE | 2022-12-29 02:07 | USR_ITS ---
PROCEDURE INFORMATION: Exam: US Abdomen, Limited; Right Upper Quadrant Exam date and time: 12/29/2022 2:39 AM Age: 32 years old Clinical indication: Abdominal pain; Epigastric; Patient HX: Normal tbili = 0.3, normal ast = 13, normal alt = 11, normal alkphos = 96, negative hcg, lipase wnl; Additional info: Ruq pain TECHNIQUE: Imaging protocol: Real time ultrasound of the abdomen with image documentation. Limited exam focused on the right upper quadrant. COMPARISON: No relevant prior studies available. FINDINGS: Liver: Unremarkable liver, no focal abnormality. Gallbladder: Numerous small shadowing gallstones visible within the gallbladder. There is also some biliary sludge in the gallbladder. Mild to moderate gallbladder wall thickening, measuring up to 4.6 mm. The gallbladder appears somewhat distended, length of 11.5 cm, transverse diameter of up to 4.7 cm. Technologist states patient was tender over the gallbladder region during scanning. The overall appearance could represent acute cholecystitis, please correlate clinically. Biliary ducts: Mild moderate biliary tree dilation, with common duct measuring up to about 8 mm. No visible common duct stone by ultrasound. Pancreas: Visible pancreas unremarkable. Right kidney: Images of the right kidney show no hydronephrosis. Intraperitoneal space: There is a small amount of peritoneal fluid visible in the right upper quadrant/Martin's pouch area. US/US gall bladder [id number] IMPRESSION: 1. Cholelithiasis, see additional details above. 2. The overall appearance could represent acute cholecystitis, please correlate clinically. 3. Mild to moderate biliary tree dilation, with common duct measuring up to about 8 mm. 4. Small amount of peritoneal fluid visible in the right upper quadrant/Martin's pouch area. 5. Other findings discussed above.
--- NOTE | 2022-12-29 02:08 | W.ED.ABDPA2 ---
HPI - Abdominal Pain General: Chief Complaint: Abdominal Pain Stated Complaint: abdomen pain Time Seen by Provider: 12/29/22 01:53 Source: patient Mode of arrival: ambulatory Limitations: no limitations History of Present Illness: 32-year-old female states she been having epigastric along with right upper quadrant pain today. She states pain is sharp in nature rates it a 8 out of 10 denies any worsening improving factors she has had nausea denies any vomiting she had no abdominal surgery in the past. Denies any fevers. Associated Symptoms: Denies chills, dysuria and fever(s) Review of Systems Const: Denies: fever(s), chills, body aches or change in appetite Eyes: Denies: blurry vision or eye discomfort ENMT: Denies: throat pain or dental pain Card: Denies: chest pain Resp: Denies: dyspnea GI: Reports: abdominal pain : Denies: dysuria Musc: Denies: neck pain or back pain Skin/Breast: Denies: rash Neuro: Denies: headache(s) Psych: Denies: depression Thomas/Lymph: Denies: easy bruising All/Imm: Denies: urticaria PFSH ED PFSH: Medical History 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 Quit in June 2020 and is on medication for withdrawal monitored by [facility]-Dr. Hernandez No pertinent past medical history Denies diabetes, asthma, hypertension, seizures, DVT/PE PCP: None Surgical History H/O dilation and curettage (~2015) 2015--performed by Dr. Lyn for incomplete miscarriage at 10 weeks at [facility] H/O LEEP (08/21/15) 08/2015----LEEP performed by Dr. Day for abnormal cells on the cervix. LEEP performed in office-squamocolumnar junction was identified and removed. She had a lot of bleeding which was unable to be controlled in the office and so was taken to outpatient surgery center were bleeding was stopped with repeated cautery and sutures. Family History Mother Diabetes Thyroid disease Heart disease Grandmother Heart disease maternal Sister Diabetes Father Colon cancer Diagnosed in his 60s Denies family history of Ovarian cancer Hyperlipidemia Breast cancer Hypertension Uterine cancer Stroke Physical Exam Const: COMMON NORMALS: no acute distress, patient oriented x3 and healthy appearing HENMT: COMMON NORMALS: normocephalic and atraumatic HEAD & SCALP: normocephalic and atraumatic Eye: COMMON NORMALS: Equal, round and reactive pupils present and EOMs intact bilaterally PUPIL: Yes Equal, round and reactive pupils present Neck/C-Spine: COMMON NORMALS: full ROM and supple Chest: COMMONS NORMALS: normal inspection of the chest and normal palpation of entire chest wall Resp: COMMON NORMALS: normal respiratory effort, No retractions, No use of accessory muscles and clear to auscultation bilaterally AUSCULTATION: clear to auscultation bilaterally Cardio: COMMON NORMALS: regular rate, regular rhythm and No murmurs present (Cardio) RATE: regular rate RHYTHM: regular rhythm GI: COMMON NORMALS: Normal to inspection, nondistended, normoactive bowel sounds present, Soft to palpation and no masses PALPATION: Yes Soft to palpation OTHER: epigastric and ruq tenderness Extremity: COMMON NORMALS: normal to inspection and full ROM Neuro: COMMON NORMALS: patient oriented x3, moves all extremities and no focal motor deficits Psych: COMMON NORMALS: mental status grossly normal, Normal thought process present and cooperative THOUGHT PROCESS: Normal thought process present Skin: COMMON NORMALS: no rashes or lesions noted and no wounds GENERAL SKIN EXAM: no rashes or lesions noted Course Vital Signs: Vital signs: Vital Signs Temperature 98.6 F 12/29/22 01:59 Pulse Rate 75 12/29/22 01:59 Respiratory Rate 18 12/29/22 01:59 Blood Pressure 131/75 12/29/22 01:59 Pulse Oximetry 96 12/29/22 01:59 Oxygen Delivery Me thod 12/29/22 01:59 MDM - Abdominal Pain Medical Decision Making Patient presents here with abdominal pain ultrasound shows cholecystitis she does have an elevated white count as well I spoke to surgeon on-call and will admit at this time. Lab Data 12/29/22 02:16 12/29/22 02:16 Labs/Radiology: Laboratory Results WBC 17.1 10^3/uL (4.0-10.0) H 12/29/22 02:16 RBC 5.35 10^6/uL (4.1-5.3) H 12/29/22 02:16 Hgb 14.1 g/dL (11.5-15.3) 12/29/22 02:16 Hct 43.0 % (37.0-47.0) 12/29/22 02:16 MCV 80.4 fl (81-99) L 12/29/22 02:16 MCH 26.4 pg (28.0-34.0) L 12/29/22 02:16 MCHC 32.8 g/dL (30.0-36.0) 12/29/22 02:16 RDW 14.0 % (12.1-15.1) 12/29/22 02:16 Plt Count 242 10^3/cmm (130-400) 12/29/22 02:16 MPV 10.8 fL (7.4-10.4) H 12/29/22 02:16 Neut % (Auto) 82.5 % 12/29/22 02:16 Lymph % (Auto) 11.4 % 12/29/22 02:16 [place] % (Auto) 5.4 % 12/29/22 02:16 Eos % (Auto) 0.1 % 12/29/22 02:16 Baso % (Auto) 0.2 % 12/29/22 02:16 Neut # (Auto) 14.12 10^3/uL (1.8-7.7) H 12/29/22 02:16 Lymph # (Auto) 2.0 10^3/uL (0.8-4.8) 12/29/22 02:16 [place] # (Auto) 0.9 10^3/uL (0.2-0.9) 12/29/22 02:16 Eos # (Auto) 0.0 10^3/uL (0.0-0.8) 12/29/22 02:16 Baso # (Auto) 0.0 10^3/uL (0.0-0.1) 12/29/22 02:16 Nucleated RBC % (auto) 0 % 12/29/22 02:16 Nucleated RBCs # 0.0 /100WBC 12/29/22 02:16 Sodium 134 mmol/L (136-145) L 12/29/22 02:16 Potassium 4.0 mmol/L (3.5-5.1) 12/29/22 02:16 Chloride 100 mmol/L (98-107) 12/29/22 02:16 Carbon Dioxide 20 mmol/L (22-29) L 12/29/22 02:16 Anion Gap 18.0 (5-19) 12/29/22 02:16 BUN 9 mg/dL (6-20) 12/29/22 02:16 Creatinine 0.5 mg/dL (0.5-0.9) 12/29/22 02:16 GFR Calculation 143.0 mL/min (90-130) H 12/29/22 02:16 Glucose 129 mg/dL (65-115) H 12/29/22 02:16 Calculated Osmolality 278 mOsm/kg (285-295) L 12/29/22 02:16 Calcium 10.3 mg/dL (8.5-10.5) 12/29/22 02:16 Total Bilirubin 0.3 mg/dL (0.15-1.2) 12/29/22 02:16 AST 13 U/L (0-32) 12/29/22 02:16 ALT 11 U/L (0-33) 12/29/22 02:16 Alkaline Phosphatase 96 U/L (35-105) 12/29/22 02:16 Total Protein 7.8 g/dL (6.6-8.7) 12/29/22 02:16 Albumin 4.5 g/dL (3.5-5.2) 12/29/22 02:16 Globulin 3.3 g/dL (1.3-4.6) 12/29/22 02:16 Lipase 11 U/L (13-60) L 12/29/22 02:16 HCG, Qual Negative (Negative) 12/29/22 02:16 Urine Color Yellow (Yellow) 12/29/22 02:16 Urine Appearance Clear (CLEAR) 12/29/22 02:16 Urine pH 8 (5-7) H 12/29/22 02:16 Ur Specific [place] 1.020 (1.005-1.030) 12/29/22 02:16 Urine Protein Neg (Negative) 12/29/22 02:16 Urine Glucose (UA) Norm (Normal) 12/29/22 02:16 Urine Ketones 1+ (Negative) H 12/29/22 02:16 Urine Blood Neg (Negative) 12/29/22 02:16 Urine Nitrate Negative (Negative) 12/29/22 02:16 Urine Bilirubin Neg (Negative) 12/29/22 02:16 Prot Sulfosalicylic Acd Negative (Negative) 12/29/22 02:16 Urine Urobilinogen Norm mg/dL (Negative) 12/29/22 02:16 Ur Leukocyte Esterase Negative (Negative) 12/29/22 02:16 Discharge Plan Discharge Patient Disposition: Admitted As Inpatient Clinical Impression: Acute cholecystitis Condition: Stable Prescriptions: No Action buprenorphine-naloxone 8-2 mg tablet, sublingual See Rx Instructions sublingual BID Rx Instructions: ; Nexplanon 68 mg implant 1 implant subdermal .every three years Qty: 1 0RF Coding Level of Care Code ED Drum Sander Offbearer for Ciera Molina
[2022-12-29] MEDS: lidocaine 2% viscous 15 ML, aluminum-mag hydrox-simethicon 30 ML, sucralfate oral liq 1 GM PO (02:21)
[2022-12-29] MEDS: sodium chloride 0.9% 1,000 ML 999 ML IV (02:22)
[2022-12-29 02:25] LABS: Basophils % 0.2 %; Eosinophils % 0.1 %; Hemoglobin 14.1 g/dL (11.5-15.3); Lymphocytes % 11.4 %; Mean Corpuscular HGB Conc 32.8 g/dL (30.0-36.0); Mean Corpuscular Hemoglobin 26.4 pg (28.0-34.0); Mean Corpuscular Volume 80.4 fl (81-99); Mean Platelet Volume 10.8 fL (7.4-10.4); Monocytes # 0.9 10^3/uL (0.2-0.9); Monocytes % 5.4 %; Neutrophils # 14.12 10^3/uL (1.8-7.7); Neutrophils % 82.5 %; Nucleated Red Blood Cells % 0 %; Platelet Count 242 10^3/cmm (130-400); Red Blood Count 5.35 10^6/uL (4.1-5.3); White Blood Count 17.1 10^3/uL (4.0-10.0)
[2022-12-29 02:26] LABS: Add Urine Microscopic? NO; Charge for UA Resulting for Rev
[2022-12-29 02:28] LABS: Bilirubin Urine Neg (Negative); Blood Urine Neg (Negative); Glucose Urine UA Norm (Normal); Ketones Urine 1+ (Negative); Leukocyte Esterase Urine Negative (Negative); Nitrate Urine Negative (Negative); Protein Urine Neg (Negative); Sulfosalicylic Acid Urine Negative (Negative); Urine Appearance Clear (CLEAR); Urine Color Yellow (Yellow); Urobilinogen Urine Norm (Negative); pH Urine 8 (5-7)
[2022-12-29 02:39] LABS: HCG, Serum Qual Negative (Negative)
[2022-12-29 02:42] LABS: Alanine Aminotransferase 11 U/L (0-33); Albumin Level 4.5 g/dL (3.5-5.2); Alkaline Phosphatase 96 U/L (35-105); Aspartate Amino Transferase 13 U/L (0-32); Blood Urea Nitrogen 9 mg/dL (6-20); Calcium 10.3 mg/dL (8.5-10.5); Carbon Dioxide 20 mmol/L (22-29); Chloride 100 mmol/L (98-107); Creatinine Clr Calc Pharmacy 150.6795; Globulin 3.3 g/dL (1.3-4.6); Glucose 129 mg/dL (65-115); Lipase 11 U/L (13-60); Osmolality Calculated 278 mOsm/kg (285-295); Sodium 134 mmol/L (136-145); Total Bilirubin 0.3 mg/dL (0.15-1.2); Total Protein 7.8 g/dL (6.6-8.7)
[2022-12-29] MEDS: piperacillin-tazobactam 3.375 GM in sodium chloride 0.9% (plus) 50 ML IV ×3 (03:23→18:20)
[2022-12-29] MEDS: HYDROmorphone 1 mg/mL INJ 1 mL IVP (03:32)
[2022-12-29] MEDS: ondansetron 2 mg/ML SDV 2 mL 4 MG IVP (03:35)
[2022-12-29] MEDS: sodium chloride 0.9% 1,000 ML 100 ML IV (04:32)
[2022-12-29] MEDS: morphine 4 mg/mL SDV 1 mL IVP ×2 (04:32→08:28)
[2022-12-29 08:58] LABS: Alanine Aminotransferase 11 U/L (0-33); Albumin Level 4.1 g/dL (3.5-5.2); Alkaline Phosphatase 91 U/L (35-105); Anion Gap 15.8 (5-19); Aspartate Amino Transferase 13 U/L (0-32); Blood Urea Nitrogen 7 mg/dL (6-20); Calcium 9.2 mg/dL (8.5-10.5); Carbon Dioxide 21 mmol/L (22-29); Chloride 101 mmol/L (98-107); Globulin 3.1 g/dL (1.3-4.6); Glucose 110 mg/dL (65-115); Osmolality Calculated 277 mOsm/kg (285-295); Potassium 3.8 mmol/L (3.5-5.1); Sodium 134 mmol/L (136-145); Total Bilirubin 0.4 mg/dL (0.15-1.2); Total Protein 7.2 g/dL (6.6-8.7)
[2022-12-29] MEDS: scopolamine 1.5 Patch 1 PATCH TRANSDERMA (12:52)
[2022-12-29] MEDS: sodium chloride 0.9% 1,000 ML 30 ML IV (12:52)
--- NOTE | 2022-12-29 13:53 | P.ANESASSM_ITS ---
Pre-Anesthetic Assessment Height/Weight: Height 1.57 m Weight 72.575 kg Temp Pulse Resp BP Pulse Ox O2 Del Method 99.6 F 80 18 95/69 93 12/29/22 12:38 12/29/22 12:38 12/29/22 12:38 12/29/22 12:38 12/29/22 12:38 12/29/22 12:38 Operation Date: 12/29/22 13:25 Proposed Procedures p Laparoscopic Cholecystectomy(Not Applicable) - Yari Larson MD Familial anesthetic complications: None Was Beta Urszula taken within 24 hours: N/A Was Clonidine taken within 24 hours: N/A Last intake: Intake Last Liquid Date 12/28/22 Last Liquid Time 23:50 Last Solid Date 12/28/22 Last Solid Time 15:40 Social Tobacco and No alcohol Exam alert, oriented x 3, clear to auscultation bilaterally and regular rate & rhythm Airway Mallampati: Class III Dentition: full Anesthetic Plan ASA status: 1 Anesthesia: General Risk of > 500 ml blood loss (7ml/kg in children): No Medications/Allergies Home Medications Medication Instructions Recorded Confirmed Last Taken Type buprenorphine 8 mg-naloxone 2 mg 1 tab sublingual TID 11/25/21 12/29/22 12/28/22 15:00 History sublingual tablet etonogestrel 68 mg subdermal 1 implant subdermal .every three 11/25/21 12/29/22 Unknown Rx implant (Nexplanon) years #1 ea Allergies Allergy/AdvReac Type Severity Reaction Status Date / Time No Known Allergies Allergy Verified 12/29/22 03:41 Current Medications Generic Name Dose Route Start Last Admin Trade Name Alfie PRN Reason Stop Dose Admin Sodium Chloride 1,000 mls @ 100 mls/hr 12/29/22 04:17 12/29/22 04:32 Sodium Chloride 0.9% IV 100 mls/hr .Q10H PATTY Administration Piperacillin Sod/Tazobactam 50 mls @ 12.5 mls/hr 12/29/22 09:30 12/29/22 12:30 Sod 3.375 gm/ Sodium Chloride IV Infused Q8H PATTY Infusion Protocol Sodium Chloride 1,000 mls @ 30 mls/hr 12/29/22 12:45 12/29/22 12:52 Sodium Chloride 0.9% IV 12/30/22 12:44 30 mls/hr .Q24H PATTY Administration Morphine Sulfate 4 mg 12/29/22 04:17 12/29/22 08:28 Morphine 4 Mg/Ml Sdv 1 Ml IVP 4 mg Q4H PRN Administration SEVERE PAIN PFSH Anesthesia Medical History 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 Quit in June 2020 and is on medication for withdrawal monitored by [facility]-Dr. Hernandez No pertinent past medical history Denies diabetes, asthma, hypertension, seizures, DVT/PE PCP: None Surgical History H/O dilation and curettage (~2015) 2015--performed by Dr. Lyn for incomplete miscarriage at 10 weeks at [facility] H/O LEEP (08/21/15) 08/2015----LEEP performed by Dr. Day for abnormal cells on the cervix. LEEP performed in office-squamocolumnar junction was identified and removed. She had a lot of bleeding which was unable to be controlled in the office and so was taken to outpatient surgery center were bleeding was stopped with repeated cautery and sutures. Family History Mother Diabetes Thyroid disease Heart disease Grandmother Heart disease maternal Sister Diabetes Father Colon cancer Diagnosed in his 60s Denies family history of Ovarian cancer Hyperlipidemia Breast cancer Hypertension Uterine cancer Stroke Data Anesthesia 12/29/22 02:16 12/29/22 08:27 Short CBC 12/29/22 Range/Units 02:16 WBC 17.1 H (4.0-10.0) 10^3/uL Hgb 14.1 (11.5-15.3) g/dL Hct 43.0 (37.0-47.0) % MCV 80.4 L (81-99) fl Plt Count 242 (130-400) 10^3/cmm Neut % (Auto) 82.5 % Neut # (Auto) 14.12 H (1.8-7.7) 10^3/uL BMP 12/29/22 12/29/22 02:16 08:27 Sodium 134 L 134 L Potassium 4.0 3.8 Chloride 100 101 Carbon Dioxide 20 L 21 L BUN 9 7 Creatinine 0.5 0.4 L Glucose 129 H 110 Calcium 10.3 9.2 Liver Function 12/29/22 12/29/22 Range/Units 02:16 08:27 Total Bilirubin 0.3 0.4 (0.15-1.2) mg/dL AST 13 13 (0-32) U/L ALT 11 11 (0-33) U/L Alkaline Phosphatase 96 91 (35-105) U/L Albumin 4.5 4.1 (3.5-5.2) g/dL Urine 12/29/22 Range/Units 02:16 Urine Color Yellow (Yellow) Urine Appearance Clear (CLEAR) Urine pH 8 H (5-7) Ur Specific [place] 1.020 (1.005-1.030) Urine Protein Neg (Negative) Urine Glucose (UA) Norm (Normal) Urine Ketones 1+ H (Negative) Urine Nitrate Negative (Negative) Urine Bilirubin Neg (Negative) Ur Leukocyte Esterase Negative (Negative) Cardiac Studies: No Data to Display
[2022-12-29] MEDS: midazolam 1 mg/mL INJ 5 ML 5 MG IVP (14:05)
[2022-12-29] MEDS: fentaNYL 50 mcg/mL INJ 2mL IVP ×3 (14:05→19:25)
--- NOTE | 2022-12-29 14:13 | PC.NURSE ---
PT requested anxiety medicine and complaining of pain. Dr. Casiano ok with versed and fentynl to be given. PT aware that her surgery will be delayed. PT stated she would rather wait here than return to her room. call light in reach, all needs identified at this time, no further requests. Medication given
--- NOTE | 2022-12-29 19:12 | PM.OP ---
Operative Report Date of procedure: December 29, 2022 Pre-op diagnosis: Acute cholecystitis Post-op diagnosis: same Post-op findings: Inflamed, edematous gallbladder Procedure done: Laparoscopic cholecystectomy Specimens removed/disposition: Gallbladder Surgeon: Yari Larson Anesthesia: General Estimated blood loss (mL): 100 Complications: None noted Findings: Edematous, inflamed gallbladder. The liver bed was friable. The cystic duct and cystic artery were clearly identified. Condition: stable Disposition: PACU Brief History: 32-year-old female presented with right upper quadrant pain. The patient had an elevated white blood cell count and a ultrasound consistent with acute cholecystitis. The risk and benefits of laparoscopic cholecystectomy were explained to the patient. The patient seems understand these risk and benefits and wanted to proceed. Procedure: Procedure in detail: The patient was brought to the operating room placed in the supine position after adequate general endotracheal anesthesia. The patient's abdomen was prepped and draped in usual sterile fashion. Following this, a timeout was performed. The patient's identifiers as well as the goals procedure were discussed. Everyone in the room agreed. A towel clip was placed on each side of the umbilicus and lifted towards the ceiling a curvilinear incision was made in the inferior aspect of the umbilicus with a skin knife. Following this a hemostat was used to dissect down to the fascia. Hemostat was used to bluntly pop into the abdomen. Following this a trocar was placed through this wound into the abdomen. The abdomen was insufflated to 15 mmHg. A 12 mm port was placed in the subxiphoid region using a similar technique. Under direct vision two 5 mm ports were placed 1 in the midclavicular line inferior to the rib cage and the other one was on the anterior axillary line. These were placed under direct vision. Now the patient was placed in reverse Trendelenburg and rolled with the left side down the right side up. The patient's gallbladder was distended and erythematous. There was some adhesions to the gallbladder. I tried to grasp the gallbladder was unable to grasp it. Because of this I used a needle trocar through one of the 5 mm ports and was able to aspirate over 400 cc of yellowish fluid from the gallbladder. This decompressed the gallbladder enough for me to be able to grasp it with grasper. Using a locking grasper through the anterior axillary line port this was placed in the dome of the gallbladder and this was this placed the gallbladder on stretch now the 2 working ports I was able to place a grasper through the midclavicular port and a [place] through the subxiphoid port. The grasper was used to grasp the infundibulum and pull it laterally and away from the gallbladder then serially took down the adhesions. The adhesions bled. There was some adhesions to the liver which need to be taken down unfortunately these blood also. Using combination of the [place] and plus the suction ocean export account manager, on suction, I was able to clearly identify the cystic duct and cystic artery. I was able to create the critical view of safety. Now the cystic artery was clipped and then transected with scissors and then the cystic duct was also clipped and transected with scissors. Now the gallbladder was regrasped in such a way to expose the gallbladder fossa and then using the Bovie cautery the gallbladder was carefully removed from the gallbladder fossa. The plane between the gallbladder and the liver was difficult to delineate there was a modest amount of bleeding from the liver bed. The Bovie cautery was used to control the bleeding. Now the gallbladder was removed and placed in an Endobag. The suction ocean export account manager was now used to irrigate the right upper quadrant and remove as much blood supple. The gallbladder fossa was raw because of this I placed some Surgicel in the gallbladder fossa in order to aid with coagulation. The Endobag was pulled out through the subxiphoid wound. The gallbladder was too distended because of this I had to extend the incision and then used a peon in the incision to help again to expand the incision so that the gallbladder and the Endobag would come out. Finally got this out. The wound was now irrigated and then using 0 Vicryl in a [id number] manner the fascia was reapproximated 3-0 Vicryl was used in the subcutaneous space. Attention was turned to the umbilicus where 0 Vicryl was used to reapproximate the fascia. Now, 4-0 Monocryl was used in a subcuticular fashion to reapproximate the skin at all 4 incisions. Dermabond was now applied. The patient was awakened and taken to recovery room in stable condition. Following the procedure, I look for the patient's mother. I have been asked the nurse to look for the patient's mother. Unfortunately were not able to find her. We will continue looking.
--- NOTE | 2022-12-29 20:00 | ANE.PACU2 ---
Inpatient post-anesthesia follow up: Airway intact: Yes Vital signs: Temperature 98.6 F Pulse Rate 73 Respiratory Rate 17 Blood Pressure 94/58 Pulse Oximetry 97 Oxygen Delivery Me thod Room Air Oxygen Flow Rate Fraction of Inspir ed Oxygen Hydration adequate: Yes Nausea and vomiting: No Pain level: 1 Mental status: Baseline
[2022-12-29 22:04] LABS: Glucose Point of Care 123 mg/dL (70-110)
[2022-12-29] MEDS: ketorolac 30 mg/mL INJ 15 MG IVP (22:11)
[2022-12-29] MEDS: dextrose 5%-ns + KCl 20 20 MEQ/1,000 ML BAG 100 MEQ IV (22:41)
[2022-12-30] VITALS: BP 78/51; PULSE 67; RESP 17; TEMP 37.4; O2SAT 98
[2022-12-30] MEDS: piperacillin-tazobactam 3.375 GM in sodium chloride 0.9% (plus) 50 ML IV ×2 (00:49→09:45)
[2022-12-30] MEDS: sodium chloride 0.9% 1,000 ML 999 ML IV (01:53)
[2022-12-30 02:04] LABS: Basophils % 0.1 %; Hematocrit 37.3 % (37.0-47.0); Hemoglobin 11.9 g/dL (11.5-15.3); Lymphocytes # 0.7 10^3/uL (0.8-4.8); Lymphocytes % 5.4 %; Mean Corpuscular HGB Conc 31.9 g/dL (30.0-36.0); Mean Corpuscular Volume 81.6 fl (81-99); Monocytes # 0.7 10^3/uL (0.2-0.9); Monocytes % 5.6 %; Neutrophils % 88.4 %; Nucleated Red Blood Cells % 0 %; Platelet Count 185 10^3/cmm (130-400); Red Blood Count 4.57 10^6/uL (4.1-5.3); Red Cell Distribution Width 14.2 % (12.1-15.1); White Blood Count 13.1 10^3/uL (4.0-10.0)
[2022-12-30 02:31] LABS: Alanine Aminotransferase 65 U/L (0-33); Albumin Level 3.6 g/dL (3.5-5.2); Alkaline Phosphatase 86 U/L (35-105); Anion Gap 14.9 (5-19); Aspartate Amino Transferase 70 U/L (0-32); Blood Urea Nitrogen 10 mg/dL (6-20); Calcium 8.1 mg/dL (8.5-10.5); Carbon Dioxide 21 mmol/L (22-29); Chloride 103 mmol/L (98-107); Globulin 2.9 g/dL (1.3-4.6); Glomerular Filtration Rate 115.9 mL/min (90-130); Glucose 186 mg/dL (65-115); Osmolality Calculated 284 mOsm/kg (285-295); Potassium 3.9 mmol/L (3.5-5.1); Sodium 135 mmol/L (136-145); Total Bilirubin 0.4 mg/dL (0.15-1.2); Total Protein 6.5 g/dL (6.6-8.7)
[2022-12-30 03:00] VITALS: BP 94/58; PULSE 73; RESP 17; TEMP 37; O2SAT 97
[2022-12-30] MEDS: enoxaparin 40 mg/0.4 mL Syringe SUBCUT (06:43)
[2022-12-30 06:48] VITALS: BP 90/52
--- NOTE | 2022-12-30 07:22 | PC.NURSE ---
pt BP low earlier in shift, hospitalist notified and new orders rec'd, bolus NS, labs and notify surgeon. @0600 Dr. Larson notified and lovenox/heparin order clarified, Neo Kwong inquired about pt output and at that time this nurse was not aware that STRIP WINDER had assisted pt to BSC and had 300 ml out, order received to bladder scan and if greater than [address] bladder scan 148 ml.
[2022-12-30] MEDS: ketorolac 30 mg/mL INJ 15 MG IVP (08:13)
--- NOTE | 2022-12-30 09:28 | PC.CHAP ---
Pastoral Care Encounter/Spiritual Assessment Type of Contact [] Declined signals collection technician visit [] Patient/Family/Request visit [] Outpatient visit [] Follow-up visit [] Physician referral [] Code/Alert [x] Routine visit [] Staff referral [] Actively dying [] Patient sleeping [] Family support [] [] Out of room [] Palliative care [] [] Receiving care in room [] Pre-surgical visit [] Trauma [] Long length of stay [] ICU visit [] Other: Relational/Emotional Strength [x] Patient feels connected with others/family/visitors/staff [] Distress [] Loneliness/isolation [] Abandonment Spirituality of Patient [] Person of Bozena [] Attends Bahai of their Bozena [] Believes in Prayer [] Reads Bible or Hindu materials [x] There are Spiritual issues to be addressed Automotive Generator Repairer Interventions [] Prayer [x] Active listening [x] Non-anxious presence [x] Spiritual/emotional support [] Crisis/trauma care [] Spiritual counseling [] Bereavement support [] Provided bereavement packet [] Provided Bible/devotional materials [] Provided toy/stuffed animal, coloring book to patient or family member [] Provided Communion [] Anointing/Blanco [] Salvation [x] Completed spiritual assessment [] Other: Impact on Illness or Injury [] Angry [] Fearful [] Anxious [] Often cries [] Exhaustion [] Unable to work [] Unable to attend pentecostalism [] Unable to walk/stand [] Unable to read [] Unable to drive [] Unable to eat/drink [] Unable to sleep [] Unable to be with family [] Patient intubated [] Other: Summary Pt not talkative. Short answers to questions. Did not want prayer Time spent with patient 5m
--- NOTE | 2022-12-30 10:30 | PM.PN ---
Subjective Subjective: This patient is done relatively well overnight. The patient status post laparoscopic cholecystectomy. The patient did require a fluid bolus throughout the night. She has tolerated clear liquids this morning. We will advance the patient's diet. The patient has not been out of bed. The patient states that her pain is under relatively good control. Medications: Reviewed: Yes Vitals/I&O/Wt Last Vital Signs Temp 98.6 F 12/30/22 03:00 Pulse 73 12/30/22 03:00 Resp 17 12/30/22 03:00 BP 90/52 12/30/22 06:48 Pulse Ox 97 12/30/22 03:00 O2 Del Method 12/30/22 00:00 12/29/22 12/30/22 12/30/22 22:59 06:59 14:59 Intake Total 50 / 100 1350 / 1450 Output Total 100 / 100 300 / 400 Balance -50 / 0 1050 / 1050 Weight last 48 hrs Weight 160 lb Physical Exam Narrative: General: No acute dress HEENT: Is normocephalic atraumatic, pupils equal round reactive to light. Lungs: Clear to auscultation and percussion Heart: Is regular rate and rhythm without murmurs. There is no S3 or S4 Abdomen: Soft, nondistended, nontender. The patient's incisions are intact. There is no evidence of infection. The patient has normal active bowel sounds Neurologic: The patient is awake, alert, oriented x3. The patient moves all 4 extremities without difficulty. The patient sensations intact to light touch throughout. Data 12/30/22 01:59 12/30/22 01:59 A&P Assessment and plan (1) Acute cholecystitis: This patient is currently doing well. We will advance patient to regular diet. Because of the patient's drug addiction history we will schedule the patient on Tylenol [id number] as well as Motrin [id number]. We will make sure the patient has Protonix to protect her stomach. If the patient does well again, we should be able to discharge this patient home this evening. I have asked the patient to get up and move. Attestations Medical Necessity Statement*: Patient may be able to be discharged home later on this afternoon Coding Level of Care Code Acute Code for [facility] Diagnoses Acute cholecystitis K81.0
[2022-12-30] MEDS: ibuprofen 600 mg Tablet PO (11:55)
[2022-12-30] MEDS: pantoprazole DR 40 mg Tablet PO (11:55)
[2022-12-30] MEDS: acetaminophen 325 mg Tablet 650 MG PO ×2 (11:55→16:36)
[2022-12-30] MEDS: nicotine 21 mg Patch 1 PATCH TRANSDERMA (13:11)
[2022-12-30 13:36] VITALS: BP 100/64; PULSE 62; RESP 16; TEMP 36.7; O2SAT 97
--- NOTE | 2022-12-30 15:45 | PM.DCS ---
Discharge Providers Date of Admission: 12/29/22 03:36 Date of Discharge: December 30, 2022 Attending Provider at Admission: Yari Larson MD Attending Provider at Discharge: Yari Larson MD Diagnoses at Discharge Discharge Diagnosis (1) Acute cholecystitis: Details from hospital stay: this patient presented with acute cholecystitis. She underwent a lap choly. Status: Acute Reason for Visit Reason for Visit: abdomen pain Brief History: 32 yo with signs and symptoms of acute cholecystitis. Hospital Course Hospital Course Admitted. Placed on abx. Then underwent a Lap choly. Did well post op Physical Exam Narrative: right upper quadrant tenderness on presentation Discharge Data Studies Completed and Pending Completed Studies During Hospitalization Category Date Time Status US gall bladder [id number] Stat Ultrasound 12/29/22 02:07 Completed Pending at discharge Category Date Time Status ES surgery / GI images Routine Exams 12/29/22 18:17 Ordered Pathology: Surgical [PTH] Routine Pth 12/29/22 19:06 Received Radiology Impressions Gallbladder Ultrasound 12/29/22 02:07 IMPRESSION: 1. Cholelithiasis, see additional details above. 2. The overall appearance could represent acute cholecystitis, please correlate clinically. 3. Mild to moderate biliary tree dilation, with common duct measuring up to about 8 mm. 4. Small amount of peritoneal fluid visible in the right upper quadrant/Martin's pouch area. 5. Other findings discussed above. Laboratory Results WBC 13.1 10^3/uL (4.0-10.0) H 12/30/22 01:59 RBC 4.57 10^6/uL (4.1-5.3) 12/30/22 01:59 Hgb 11.9 g/dL (11.5-15.3) 12/30/22 01:59 Hct 37.3 % (37.0-47.0) 12/30/22 01:59 MCV 81.6 fl (81-99) 12/30/22 01:59 MCH 26.0 pg (28.0-34.0) L 12/30/22 01:59 MCHC 31.9 g/dL (30.0-36.0) 12/30/22 01:59 RDW 14.2 % (12.1-15.1) 12/30/22 01:59 Plt Count 185 10^3/cmm (130-400) 12/30/22 01:59 MPV 11.0 fL (7.4-10.4) H 12/30/22 01:59 Neut % (Auto) 88.4 % 12/30/22 01:59 Lymph % (Auto) 5.4 % 12/30/22 01:59 [place] % (Auto) 5.6 % 12/30/22 01:59 Eos % (Auto) 0.0 % 12/30/22 01:59 Baso % (Auto) 0.1 % 12/30/22 01:59 Neut # (Auto) 11.60 10^3/uL (1.8-7.7) H 12/30/22 01:59 Lymph # (Auto) 0.7 10^3/uL (0.8-4.8) L 12/30/22 01:59 [place] # (Auto) 0.7 10^3/uL (0.2-0.9) 12/30/22 01:59 Eos # (Auto) 0.0 10^3/uL (0.0-0.8) 12/30/22 01:59 Baso # (Auto) 0.0 10^3/uL (0.0-0.1) 12/30/22 01:59 Nucleated RBC % (auto) 0 % 12/30/22 01:59 Nucleated RBCs # 0.0 /100WBC 12/30/22 01:59 Sodium 135 mmol/L (136-145) L 12/30/22 01:59 Potassium 3.9 mmol/L (3.5-5.1) 12/30/22 01:59 Chloride 103 mmol/L (98-107) 12/30/22 01:59 Carbon Dioxide 21 mmol/L (22-29) L 12/30/22 01:59 Anion Gap 14.9 (5-19) 12/30/22 01:59 BUN 10 mg/dL (6-20) 12/30/22 01:59 Creatinine 0.6 mg/dL (0.5-0.9) 12/30/22 01:59 GFR Calculation 115.9 mL/min (90-130) 12/30/22 01:59 Glucose 186 mg/dL (65-115) H 12/30/22 01:59 POC Glucose 123 mg/dL (70-110) H 12/29/22 22:01 Calculated Osmolality 284 mOsm/kg (285-295) L 12/30/22 01:59 Calcium 8.1 mg/dL (8.5-10.5) L 12/30/22 01:59 Total Bilirubin 0.4 mg/dL (0.15-1.2) 12/30/22 01:59 AST 70 U/L (0-32) H 12/30/22 01:59 ALT 65 U/L (0-33) H 12/30/22 01:59 Alkaline Phosphatase 86 U/L (35-105) 12/30/22 01:59 Total Protein 6.5 g/dL (6.6-8.7) L 12/30/22 01:59 Albumin 3.6 g/dL (3.5-5.2) 12/30/22 01:59 Globulin 2.9 g/dL (1.3-4.6) 12/30/22 01:59 Lipase 11 U/L (13-60) L 12/29/22 02:16 HCG, Qual Negative (Negative) 12/29/22 02:16 Urine Color Yellow (Yellow) 12/29/22 02:16 Urine Appearance Clear (CLEAR) 12/29/22 02:16 Urine pH 8 (5-7) H 12/29/22 02:16 Ur Specific [place] 1.020 (1.005-1.030) 12/29/22 02:16 Urine Protein Neg (Negative) 12/29/22 02:16 Urine Glucose (UA) Norm (Normal) 12/29/22 02:16 Urine Ketones 1+ (Negative) H 12/29/22 02:16 Urine Blood Neg (Negative) 12/29/22 02:16 Urine Nitrate Negative (Negative) 12/29/22 02:16 Urine Bilirubin Neg (Negative) 12/29/22 02:16 Prot Sulfosalicylic Acd Negative (Negative) 12/29/22 02:16 Urine Urobilinogen Norm mg/dL (Negative) 12/29/22 02:16 Ur Leukocyte Esterase Negative (Negative) 12/29/22 02:16 Vitals Last Vital Signs Temp 98.1 F 12/30/22 13:36 Pulse 62 12/30/22 13:36 Resp 16 12/30/22 13:36 BP 100/64 02/22/23 13:36 Pulse Ox 97 12/30/22 13:36 O2 Del Method 12/30/22 13:36 Discharge Plan Discharge Patient Disposition: Home Condition: Stable Prescriptions: New acetaminophen 325 mg Tablet 650 mg PO Q6H 7 Days Qty: 56 0RF ibuprofen 600 mg Tablet 600 mg PO Q6H 10 Days Qty: 30 0RF Continued buprenorphine-naloxone 8-2 mg tablet, sublingual 1 tab sublingual TID Rx Instructions: ; Nexplanon 68 mg implant 1 implant subdermal .every three years Qty: 1 0RF Discharge Orders: Discharge Order (Routine); Ordered 12/30/22 Ordered By: Yari Larson Referrals: Benoit Lee DO [Physician] - 01/13/23 1:45 pm Mariam Singleton, [employer] [Nurse Practitioner] - 01/06/23 11:20 am Discharge Diet: Regular Discharge Activity: Limit activity as instructed Patient Instructions: Ibuprofen (By mouth), Laparoscopic Cholecystectomy (GEN), Opioid Safety, Post Anesthesia Care Activity Restrictions/Additional Instructions: NO heavy lifting for 1 week. Keep wounds clean and dry. Don't soak wounds for 1 week. Follow up with Dr. Lee in 1 week Discharge Attestations Time Spent in Discharge Care*: less than 30 min Quality Metrics Clinical Quality Measures [ No reported AMI, CVA or VTE this stay] Coding Level of Care Code 15373 Diagnoses Acute cholecystitis K81.0
[2022-12-30 16:53] VITALS: BP 100/64; PULSE 62; RESP 16; TEMP 36.7; O2SAT 97
[2022-12-30 16:56] VITALS: BP 100/64; PULSE 62; RESP 16; TEMP 36.7; O2SAT 97
--- NOTE | 2022-12-31 16:08 | PM.HP ---
Providers/Chief Complaint Admitting Physician: Yari Larson MD Chief Complaint: abdomen pain History of Present Illness This is a late entry for the patient's history and physical. This history and physical was for 12/29/2022. (I thought the patient is admitted to the hospitalist. I did write a progress note on this date.) Daphne Lim is a 32 year old female who presents with abdominal pain. Patient's had right upper quadrant pain. The pain has become more severe over the last several hours. The patient went an ultrasound in the emergency room which is consistent with acute cholecystitis. The patient had both nausea and vomiting. She denies fever or chills. She denies constipation or diarrhea. She has had no abnormality in her stools. The patient has not noticed any evidence of jaundice. Review of Systems General: Reports: 10 or more systems reviewed and unremarkable except in HPI and below Medications/Allergies Home Medications Medication Instructions Recorded Confirmed Last Taken Type buprenorphine 8 mg-naloxone 2 mg 1 tab sublingual TID 11/25/21 12/31/22 12/28/22 15:00 History sublingual tablet etonogestrel 68 mg subdermal 1 implant subdermal .every three 11/25/21 12/31/22 Unknown Rx implant (Nexplanon) years #1 ea acetaminophen 325 mg tablet 650 mg PO Q6H 7 days #56 tabs 12/30/22 12/31/22 Unknown Rx ibuprofen 600 mg tablet 600 mg PO Q6H 10 days #30 tabs 12/30/22 12/31/22 Unknown Rx Allergies Allergy/AdvReac Type Severity Reaction Status Date / Time No Known Allergies Allergy Verified 12/29/22 03:41 PFSH Acute PFSH: Medical History 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 Quit in June 2020 and is on medication for withdrawal monitored by Ori Lechuga in [place]-Dr. Hernandez No pertinent past medical history Denies diabetes, asthma, hypertension, seizures, DVT/PE PCP: None Surgical History H/O dilation and curettage (~2015) 2016--performed by Dr. Lyn for incomplete miscarriage at [address] [facility] H/O LEEP (08/21/15) 08/2015----LEEP performed by Dr. Day for abnormal cells on the cervix. LEEP performed in office-squamocolumnar junction was identified and removed. She had a lot of bleeding which was unable to be controlled in the office and so was taken to outpatient surgery center were bleeding was stopped with repeated cautery and sutures. Family History Mother Diabetes Thyroid disease Heart disease Grandmother Heart disease maternal Sister Diabetes Father Colon cancer Diagnosed in his 60s Denies family history of Ovarian cancer Hyperlipidemia Breast cancer Hypertension Uterine cancer Stroke Vitals/I&O/Wt Last Vital Signs Temp 98.1 F 12/30/22 16:56 Pulse 62 12/30/22 16:56 Resp 16 12/30/22 16:56 BP 100/64 12/30/22 16:56 Pulse Ox 97 12/30/22 16:56 O2 Del Method 12/30/22 13:36 Physical Exam Narrative: Generally: This is an ill-appearing white female HEENT is normocephalic atraumatic, pupils equal round reactive to light. There is no evidence of icterus. Extraocular muscles are intact Neck: Free range of motion and nontender. The patient's trachea is midline. The patient has no thyromegaly Lungs: Clear to auscultation Chest: Is nontender to palpation Breast exam: Deferred Heart: Is regular rate and rhythm without murmurs. There is no S3 or S4. There is no rubs clicks or JVD noted. The patient is slightly tachycardic. Abdomen: Patient has right upper quadrant tenderness without rebound. The patient has normal active bowel sounds. There is no hernias that I can appreciate. There is no hepatosplenomegaly. The patient's abdomen is soft. Her abdomen is nondistended. Pelvis: Stable to both AP and medial compression Extremities: Stop deformities or point tenderness suggestive of fracture. The patient has no clubbing cyanosis or edema. The patient has good capillary refill in both her hands and feet. Neurologic: The patient is awake, alert, oriented x3. The patient's [place] Coma Scale is 15. Patient moves all 4 extremities without difficulty. The patient sensations intact to light touch throughout. Data 12/30/22 01:59 02/22/23 01:59 A&P Assessment and plan (1) Acute cholecystitis: We will admit the patient to the hospital. We will start the patient on antibiotics. We will schedule the patient for laparoscopic cholecystectomy. Attestations Medical Necessity Statement*: The patient will need operative intervention. Coding Level of Care Code 38251 Diagnoses Acute cholecystitis K81.0
== END 2022-12-30 16:49 | disposition home or self-care (01) | DRG 419 ==
LOC: ER 03:35 → MEDSURG 03:37
PROVIDERS: Student in an Organized Health Care Education/Training Program; Admitting Provider Surgery Surgical Critical Care; Emergency Provider Emergency Medicine; Visit Provider Surgery Surgical Critical Care
PROC: 0FT44ZZ Resection of Gallbladder, Percutaneous Endoscopic Approach (ICD-10-PCS; CPT 47562; principal; 2022-12-29 13:05)
DX: K81.0 Acute cholecystitis (principal); F11.11 Opioid abuse, in remission
CPT/HCPCS: 12345; 36415; 36416; 76705; 80053; 81003; 82962; 83690; 84703; 85025; 88304; 96372; 99223; 99238; 99285; J1100; J1170; J1650; J1885; J2250; J2270; J2405; J2543; J2704; J2710; J3010; J3490; J7030

== ENCOUNTER → 2023-01-06 12:01 | Outpatient (BNVA) | payer MEDICAID, SELFPAY | PROVIDERS: PCP Nurse Practitioner; Visit Provider Nurse Practitioner | DX: R74.8 Abnormal levels of other serum enzymes (principal) | CPT/HCPCS: 80053; 85025 ==

== ENCOUNTER → 2024-08-16 13:21 | Outpatient (BNVA) | payer MEDICAID, SELFPAY | PROVIDERS: PCP Nurse Practitioner; Visit Provider Nurse Practitioner | DX: F41.1 Generalized anxiety disorder (principal) | CPT/HCPCS: 80053; 84443 ==

== ENCOUNTER → 2025-07-05 13:18 | Outpatient (BNVA) | payer MEDICAID, SELFPAY | PROVIDERS: PCP Nurse Practitioner; Visit Provider Nurse Practitioner | DX: Z12.4 Encounter for screening for malignant neoplasm of cervix (principal) | CPT/HCPCS: 88175 ==

== ENCOUNTER → 2025-07-17 13:48 | Outpatient (BNVA) | payer MEDICAID, SELFPAY | PROVIDERS: PCP Nurse Practitioner; Visit Provider Nurse Practitioner | DX: G56.03 Carpal tunnel syndrome, bilateral upper limbs (principal) | CPT/HCPCS: 71046; 80053; 85025 ==

== ENCOUNTER → 2025-07-19 05:41 | Day surgery (SDC) | payer MEDICAID, SELFPAY ==
[2025-07-19] VITALS (9 sets, daily range): BP systolic 97–132; BP diastolic 57–83; PULSE 67–74; RESP 16–19; TEMP 36.6–36.8; O2SAT 97–100; BMI 29.6
[2025-07-19 06:08] LABS: OR HCG Qualitative Urine Negative (Negative)
--- NOTE | 2025-07-19 06:58 | W.PM.OPSUD ---
Surgery/Procedure H&P Update DATE OF PROCEDURE: July 19, 2025 DATE H&P PERFORMED: 07/12/25 H&P UPDATE INFORMATION: I have reviewed H&P completed within last 30 days, I have examined patient prior to procedure and No changes to prior documentation PREOP DIAGNOSIS: Right carpal tunnel syndrome PLANNED PROCEDURE: Operation Date: 07/19/25 07:00 Proposed Procedures p Carpal Tunnel Release(Right) - Dajuan De Leon MD
[2025-07-19] MEDS: ceFAZolin 2,000 mg SDV 2000 MG IVP (06:59)
[2025-07-19] MEDS: BUPivacaine 0.5% INJ 10 mL INJECTION (07:23)
--- NOTE | 2025-07-19 07:26 | PM.OP ---
Operative Report Date of procedure: July 19, 2025 Surgeon: Dajuan De Leon MD Procedure: Preoperative diagnosis: Bilateral carpal tunnel syndrome Postoperative diagnosis: Same Procedure: Right carpal tunnel release Surgeon: Dajuan De Leon MD Anesthesia: General Tourniquet time: 4 minutes at 250 mmHg Indications: Daphne is a 35-year-old white female was referred in through neurology service for positive nerve conduction test for bilateral carpal tunnel syndrome. Patient is had difficulty with gripping grasping and fumbling with objects. She also states that occasional pain in her hands as well as numbness and tingling that wakes her at night. She has failed all conservative measures at this point and was sent for orthopedic consultation. After orthopedic evaluation she had positive findings for carpal tunnel syndrome and therefore was offered a carpal tunnel release. All risk benefits treatment alternatives discussed with her. Also discussed with her that can take up to 17 weeks for nerve recovery. I have warned that not all the symptoms may completely resolve and that she may have permanent damage already. She is understanding of the and wishes to proceed with surgical intervention. She request to have her right hand done first. Procedure: After obtaining the consent patient taken the operative room and still on her hospital [facility] had general anesthetic administered. Once good anesthesia was achieved right arm had a proximal tourniquet placed. Right arm was then prepped and draped usual fashion. After surgical timeout standard longitudinal incision was made from distal flexion crease on the volar surface of the wrist just ulnar to the mid palmar crease distally approximately 1-1/2 cm. Sharp dissection taken down down to subcutaneous tissue then taken on down the transverse carpal ligament. Transverse carpal ligament is divided with a #15 blade along the course of the skin incision. Then in a blunt sharp fashion using Metzenbaum scissors ligament was released both proximally and distally. It is found to be quite tight distally with significant decompression achieved with release. Wound was then closed with 3-0 nylon running horizontal mattress suture. The wound was then injected with half percent Marcaine of approximately 5 cc about the surgical site for postoperative pain management. Wounds are clean and dry dressed with Xeroform gauze, sterile gauze dressing, Kerlix wrap, and an Gil wrap for compression. Patient awakened transferred to cover room stable condition
--- NOTE | 2025-07-19 09:49 | ANE.PACU2 ---
Inpatient post-anesthesia follow up: Airway intact: Yes Vital signs: Temperature 98.2 F Pulse Rate 68 Respiratory Rate 16 Blood Pressure 132/75 Pulse Oximetry 99 Oxygen Delivery Me thod Room Air Oxygen Flow Rate 6 Fraction of Inspir ed Oxygen Hydration adequate: Yes Nausea and vomiting: No Pain level: controlled Mental status: Baseline
== END | disposition home or self-care (01) ==
PROVIDERS: PCP Nurse Practitioner; Visit Provider Orthopaedic Surgery
PROC: (CPT 64721; principal; 2025-07-19 07:00)
DX: G56.03 Carpal tunnel syndrome, bilateral upper limbs (principal)
CPT/HCPCS: 64721; 81025; J0131; J0690; J1100; J1885; J2250; J2371; J2405; J2704; J3010; J3490; J7030; J9999